=== PATIENT | female | born 1950 | race Caucasian/White ===

== ENCOUNTER 2019-02-12 17:10 | Inpatient (IN) | payer MEDICARE, OTHER ==
[~2019-02-12] VITALS: Ht 152.4 cm; Wt 72.6 kg
[~2019-02-12 17:10] MED LIST: BENICAR20 MG PO; BIOTIN PO; CITRACAL CALCIUM; ESTRADIOL1 MG PO; GLUCOSAMINE1000 MG PO; HYDROCODON-ACE1 EA11 PO; HYDROXYCHLOROQ200 MG PO; LEFLUNOMIDE20 MG PO; LISINOPRIL10 MG PO; MELATONIN1 MG PO; MULTIVITAMIN PO; NITROSTAT0.4 MG PO; PANTOPRAZOLE SO40 MG PO; SERTRALINE HCL100 MG PO; TYLENOL WITH C1 EACH PO; ULTRAM 50MG50 MG PO
--- OUTSIDE RECORDS SUMMARY | 2019-02-12 17:14 | XMS REPORT | Continuity of Care Document ---
Author Author [facility] Interface Address Unknown Phone Unavailable Problems Problem Status Onset Date Classification Date Reported Comments Source UNK Active 07/02/2018 [place] M25.512 - PAIN IN LEFT SHOULDER Active 02/13/2018 [facility] Cough 11/08/2017 02/10/2018 [facility] RIGHT TKR Active 09/29/2017 [facility] RT TKR Active 09/29/2017 [facility] M48.06 - "SPINAL STENOSIS, LUMBAR REGION Active 03/07/2016 [facility] [place] R32 - UNSPECIFIED URINARY INCONTINEN M48 Active 02/27/2016 [facility] [place] Diaphragmatic hernia without obstruction or gangrene 02/10/2018 [facility] Cervical disc disorder, unspecified, unspecified cervical region 02/04/2018 [facility] [place] Anemia Active Problem [facility]04[facility] [place] Rheumatoid arthritis Active Problem 12/04/2018 [facility] [place] Asthma Resolved Problem 12/04/2018 [facility] [place] GERD (<span ID="[id number]">Confirmed</span>) Active Problem 12/04/2018 [facility] [place] History of colon polyps Resolved Problem 12/04/2018 [facility] [place] HTN (<span ID="[id number]">Confirmed</span>) Active Problem 12/04/2018 [facility] [place] Osteoarthritis Active Problem [facility]04[facility] [place] Osteoporosis Active Problem 12/04/2018 [facility] [place] BARRON KNEE OA AND PAIN AND GAIT INSTABILIT Active [facility] UNILATERAL PRIMARY OSTEOARTHRITIS, LEFT Active [facility] Medications Medication Details Route Status Patient Instructions Ordering Provider Order Date Source Sodium Chloride 0.9% IV 1,000 mL 1,000 mL, Rate: 25 ml/hr, Infuse over: 40 hr, Route: IV, Dosing Weight 73.636 kg, Total Volume: 1,000, Start date: 04/07/18 8:21:00 CDT, Duration: 1 day, Stop date: 04/08/18 8:20:00 CDT, 1.81, m2 Inactive 04/07/2018 [facility] leflunomide 20 mg oral tablet 20 mg=1 tab, PO, Daily, 0 Refill(s) Active 04/06/2018 [facility] montelukast 10 mg oral tablet 10 mg=1 tab, PO, Daily, 0 Refill(s) Active 04/06/2018 [facility] estradiol-norethindrone 0.5 mg-0.1 mg oral tablet 1 tab, PO, Daily, 0 Refill(s) Active 04/06/2018 [facility] Alendronic acid 70 MG Oral Tablet 70 mg=1 tab, PO, qWeek, 0 Refill(s) Active 04/06/2018 [facility] olmesartan 40 mg oral tablet 40 mg=1 tab, PO, Daily, 0 Refill(s) Active 04/06/2018 [facility] Elemental Iron 325, PO, Daily, 0 Refill(s) Active 04/06/2018 [facility] sertraline 100 mg oral tablet 100 mg=1 tab, PO, Daily, 0 Refill(s) Active 04/06/2018 [facility] tizanidine 2 mg oral tablet 2 mg=1 tab, PO, PRN, 0 Refill(s) Active 04/06/2018 [facility] pantoprazole 40 mg oral enteric coated tablet 40 mg=1 tab, PO, Daily, 0 Refill(s) Active 04/06/2018 [facility] Melatonin 1 mg oral tablet 1 mg=1 tab, PO, Bedtime, PRN for insomnia, 0 Refill(s) Active 04/06/2018 [facility] Fish Oil 1000 mg oral capsule 1,000 mg=1 cap, PO, BID, 0 Refill(s) Active 04/06/2018 [facility] Citracal + D 250 mg-500 intl units oral tablet, chewable 2 tab, CHEW, 0 Refill(s) Active 04/06/2018 [facility] 0.3 ML Epinephrine 1 MG/ML Prefilled Syringe [Epipen] 0.3 mg, IM, ONCE, 0 Refill(s) Active 04/06/2018 [facility] Loratadine 10 MG Oral Tablet [Claritin] 10 mg=1 tab, PO, Daily, 0 Refill(s) Active 04/06/2018 [facility] Centrum 1 tab, PO, Daily, 0 Refill(s) Active 04/06/2018 [facility] Aspirin 81 MG Enteric Coated Tablet 81 mg=1 tab, PO, Daily Active 04/06/2018 [facility] Allergies, Adverse Reactions, Alerts Substance Category Reaction Severity Reaction type Status Date Reported Comments Source sulfa drugs Assertion Drug allergy Active [facility] methotrexate Assertion Drug allergy Active [facility] Augmentin Assertion Drug allergy Active [facility] Food Gluten Assertion Drug allergy Active [facility] Food Nuts Assertion Drug allergy Active [facility] JACQUELYN Inhibitors Assertion Drug allergy Active [facility] hydroCHLOROthiazide Assertion Drug allergy Active [facility] Immunizations Immunization Date Given Site Status Last Updated Comments Source Results Order Name Results Value Reference Range Date Interpretation Comments Source Hip wo contrast CT Hip wo contrast CT EXAM: CT RIGHT HIP WITHOUT CONTRAST DATE: 11/04/2018 13:23 [employer] INDICATION: - M54.41 Lumbago with sciatica, right side COMPARISON: None. TECHNIQUE: Volumetric CT acquisition of the hip without contrast. Axial, sagittal and coronal reconstructions. IV contrast: None. DLP: 196 mGy-cm. FINDINGS: There is diffuse osteopenia. Pelvis/Acetabulum: There is no acute fracture. Minimal acetabular osteophytes are present. Femur: The proximal femoral femur is intact. No acute fracture identified. Greater trochanteric enthesophytes are noted. A small ossific fragment along the anterior aspect of the right greater trochanter may represent remote injury versus a broken enthesophyte. Small femoral neck and medial femoral head osteophytes noted. Mild femoral acetabular joint space narrowing. Soft tissues: No soft tissue swelling. Atherosclerotic vascular calcifications are present. No radiopaque foreign body or subcutaneous emphysema. No pneumarthrosis. IMPRESSION: 1. No acute fracture or malalignment. 2. Mild right hip joint degenerative changes. 11/04/2018 - - Read by: Ayden Massey MD Dictated Date/time: 11/04/18 15:10 Electronically Signed by: Ayden Massey MD 02/06/19 15:15 FINAL REPORT [facility] lumbar wo contrast CT Spine lumbar wo contrast CT EXAM: CT LUMBAR SPINE WITHOUT CONTRAST DATE: 11/04/2018 13:23 [employer] INDICATION: Low back pain, right-sided sciatica COMPARISON: MRI lumbar spine from 02/29/2016 TECHNIQUE: Noncontrast axial imaging was obtained through lumbar spine. Coronal and sagittal reformatted images were generated. DLP: 317.05mGy-cm FINDINGS: Slight anterolisthesis of L5 on S1, otherwise the lumbar vertebrae maintain normal height and alignment. Laminectomy changes at the L4-L5 level. Diffuse severe reduction of disc height, with degenerative endplate changes and endplate osteophyte formation and vacuum phenomenon at all levels. Ventral epidural air at the L4 level, likely from the discogenic degenerative change. Accentuated lordotic curve. T11-T12: Mild right greater than left facet hypertrophy and mild posterior endplate osteophyte formation with no spinal canal or foraminal stenosis. T12-L1: Mild bilateral facet arthropathy. No spinal canal or foraminal stenosis. L1-L2: Bilateral facet hypertrophy and posterior disc osteophyte complex with at least mild spinal canal stenosis. Endplate osteophytes encroach into the inferior foraminal recesses bilaterally, with bilateral foraminal stenosis. L2-L3: Bilateral facet hypertrophy and posterior disc osteophyte complex with a focal bridging left posterior central disc osteophyte complex. Severe spinal canal stenosis. Bilateral facet hypertrophy and foraminal stenosis. L3-L4: Posterior disc osteophyte complex and bilateral facet hypertrophy, with severe spinal canal stenosis and obliteration of the subarticular zones and bilateral foraminal stenosis, severe on the left which places the exiting nerve root sleeve at risk for impingement. L4-L5: Decompressed spinal canal secondary to laminectomy changes. Right greater than left facet hypertrophy with bilateral foraminal stenosis, more severe on the right, placing the exiting nerve root sleeve at risk for impingement. L5-S1: Grade 1 anterolisthesis. Posterior endplate osteophyte formation and advanced bilateral facet hypertrophy with associated spinal canal stenosis. Bilateral foraminal stenosis, severe on the left, placing the exiting nerve root sleeve at risk for impingement. The paraspinal soft tissues are unremarkable. There is a partially imaged linear catheter or lead in the left postsurgical soft tissues. IMPRESSION: Diffuse discogenic degenerative changes in the lower thoracic and lumbar spine, with some associated ventral epidural air at the L4 level. L4-L5 laminectomy changes. Severe spinal canal stenosis at L2-L3 and worst at L3-L4. Diffuse facet facet hypertrophy with multilevel foraminal stenosis. 11/04/2018 - - Read by: Davide Bai MD Dictated Date/time: 11/04/18 15:06 Electronically Signed by: Davide Bai MD 11/04/18 15:33 FINAL REPORT [facility] Knee 1-2 Views unilateral DX Knee 1-2 Views unilateral DX Patient Name: LISA GARZA : 1950; Age: 68 years Female MR: [id number] Study: Knee 1-2 Views unilateral DX 08/24/2018 12:55 PM [employer] CLINICAL INDICATION: Arthritis - Assess Implant Position COMPARISON: None FINDINGS: Views and laterality: Right knee 2 views The femoral and tibial prosthetic components of the right knee arthroplasty appear in adequate alignment. No evidence of hardware loosening or malfunction. No displaced fracture. Postoperative changes of the surrounding soft tissues including swelling and gas foci. IMPRESSION: Status post right knee arthroplasty. SL: [id number] 08/24/2018 - - Read by: Marjan Diehl MD Dictated Date/time: 08/24/18 14:02 Electronically Signed by: Marjan Diehl MD 08/24/18 14:03 FINAL REPORT [facility] Spine cervical 2 or 3 view DX Spine cervical 2 or 3 view DX Spine cervical 3 view DX Age: 68 years /o Female Clinical Indication: Arthritis - C1-2 instability; Comparison: None FINDINGS: Neutral, flexion and extension lateral views performed. The patient has had previous cervical fusions. An anterior plate bridges a fused C4-5 disc level. Interbody fusion grafts are present at C5-6 and C6-7. There is mild anterior migration of the C6-7 fusion cage so that the inferior margin projects approximately 2 mm anterior to the upper endplate of C7. The atlantodental articulation appears mildly degenerated, but otherwise unremarkable. Lateral view in flexion reveals a 3.5 mm anterolisthesis of C3 with respect to C4. There is a 1.8 mm anterolisthesis of C2 with respect to C3. Fusion grafts appear stable. Lateral view in extension reveals reduction of the L2-3 and L3-4 anterolisthesis changes to anatomic alignment. This view demonstrates the cervicothoracic junction to advantage, revealing an 8 mm anterolisthesis of C7 with respect to T1 with advanced degenerative disc disease at the C7-T1 level. This finding has progressed significantly from previous MR study of 02/29/2016. IMPRESSION: 1. An 8 mm (severe grade II) anterolisthesis of C7 with respect to T1 on the lateral extension view. Associated with advanced degenerative disc disease at C7-T1. (This finding is only well seen on the extension view and may be worse with flexion.) 2. Mild anterolisthesis of C2 with respect to C3 and C3 with respect to C4 on flexion. Which is reduced in neutral and extension projections. SL: [id number] 08/24/2018 - - Read by: Ulices Jeffers MD Dictated Date/time: 08/24/18 09:41 Electronically Signed by: Ulices Jeffers MD 08/24/18 09:52 FINAL REPORT [facility] Chest 2 views DX Chest 2 views DX Patient Name: LISA GARZA : 1950; Age: 68 years y/o Female MR: [id number] Study: Chest 2 views DX 08/06/2018 8:33 AM [employer] Ordering Physician: Kong Ackerman MD Comparison: Chest radiograph 11/04/2017 Clinical Indication: Coughing Findings: No focal consolidation, pleural effusion or pneumothorax. The heart size is within normal limits. Midline trachea. Large hiatal hernia. Degenerative changes of the thoracic spine. Cervical spine fusion hardware. Remote left-sided rib fractures. Right upper quadrant surgical clips. IMPRESSION: No pneumonia. Large hiatal hernia. SL: [id number] 08/06/2018 - - Read by: Uriel Gleason Dictated Date/time: 08/06/18 09:20 Electronically Signed by: Uriel Gleason 08/06/18 09:22 FINAL REPORT [facility] Shoulder w contrast CT Shoulder w contrast CT CT LEFT SHOULDER ARTHROGRAM WITH SAGITTAL AND CORONAL REFORMATTED IMAGES HISTORY: M75.42 - IMPINGEMENT SYNDROME, PAIN; 67-year-old female reports left shoulder pain and limited range of motion, CT DLP 389.05 COMPARISON: Left shoulder radiography dated 02/13/2018 FINDINGS: Complete tears of the supraspinatus and infraspinatus tendons with several centimeters retraction to the level of the glenoid. Low-grade interstitial tear within the subscapularis insertion. No subscapularis tendon retraction. Superior subluxation of the humeral head compatible with massive rotator cuff tear. Free extravasation of intra-articular contrast into the subacromial space related to full-thickness rotator cuff tear. Long head of the biceps tendon not visualized compatible with complete tear and retraction. No labral tear is evident. Mild diffuse thinning of the glenohumeral cartilage without full-thickness cartilage defect. Mild hypertrophic acromioclavicular arthropathy with mild inferior spurring. No fracture or aggressive osseous lesion. No soft tissue mass or fluid collection. Visualized portion of the left lung is clear. IMPRESSION: 1. Complete tears of the supraspinatus and infraspinatus tendons with several centimeters retraction compatible with massive rotator cuff tear. 2. Low-grade interstitial tear within the subscapularis insertion. No subscapularis retraction. 3. Nonvisualization of the long head of the biceps tendon compatible with tear and retraction. 4. Mild diffuse glenohumeral cartilage thinning and mild acromioclavicular hypertrophic arthropathy. SL: [id number] 04/02/2018 - - Read by: Baldemar Landers MD Dictated Date/time: 04/02/18 16:21 Electronically Signed by: Baldemar Landers MD 04/02/18 16:30 FINAL REPORT [facility] Shoulder arthrogram DX Shoulder arthrogram DX Patient Name: LISA GARZA : 1950; Age: 67 years y/o Female MR: [id number] Study: Shoulder arthrogram DX 04/02/2018 1:22 PM CDT Ordering Physician: Kong Ackerman MD Clinical Indication: M75.42 Impingement syndrome of left shoulder - left shoulder pain Comparison: None EXAM: FLUOROSCOPY-GUIDED LEFT SHOULDER INJECTION FOR MR ARTHROGRAM TECHNIQUE: Consent: The risks and benefits of fluoroscopically guided left shoulder injection for CT arthrography including alternative forms of treatment and nontreatment were discussed with the patient. The patient indicated understanding, was allowed to ask questions, and signed a written informed consent. Appropriate time out procedures were performed. Fluoroscopy time: 2.2 minutes. TECHNIQUE: The patient was placed supine on the fluoroscopy table with a bolster under the right shoulder. Suitable access to the left shoulder joint was marked under fluoroscopy and the area prepared and draped in the usual sterile fashion. Local anesthesia was obtained with injection of approximately 8 mL lidocaine 1%. Subsequently, a 22-gauge needle was advanced into the left shoulder joint under fluoroscopic guidance. Approximately 8 mL Omnipaque 300 were injected without difficulty. The needle was removed. The patient experienced fairly severe pain with the initial local anesthesia and needle p lacement, but reported 0-1 pain at the end of the examination. IMPRESSION: Fluoroscopically guided left shoulder injection for CT arthrography as above discussed. SL: [id number] 04/02/2018 - - Read by: Ferny Hammond MD Dictated Date/time: 04/02/18 15:36 Electronically Signed by: Ferny Hammond MD 04/02/18 15:40 FINAL REPORT [facility] Shoulder series DX Shoulder series DX EXAM: XR LEFT SHOULDER 3 VIEWS DATE: 02/13/2018 11:37 AM CDT INDICATION: - M25.512 Pain in left shoulder COMPARISON: None available. TECHNIQUE: 3 views of the shoulder FINDINGS: No acute fracture or malalignment is identified. Mild degenerative changes of acromioclavicular joint. Mild diffuse osteopenia is present. Curvilinear calcification along the posterior lateral aspect of the humeral head likely represents capsular calcification. IMPRESSION: 1. No acute abnormality. 2. Mild acromioclavicular joint degenerative changes. 02/13/2018 - - Read by: Ayden Massey MD Dictated Date/time: 02/13/18 13:59 Electronically Signed by: Ayden Massey MD 02/13/18 14:01 FINAL REPORT [facility] Spine cervical wo contrast CT Spine cervical wo contrast CT EXAMINATION: CT cervical spine without contrast: 01/26/2018 INDICATION: Cervical disc disorder. Rheumatoid arthritis. FINDINGS: Noncontrast CT images of the cervical spine are performed with multiplanar reformatting. Comparison is made to an MRI study dated 03-14 intervening plain films dated 07/15/[address] study demonstrates to much better advantage advanced degenerative changes present at the C7-T1 transitional level. These were probably present on the plain film, but obscured by overlying shoulder. The changes are much more advanced than on the comparison MRI from 2016, when only early anterolisthesis was evident. The current exam shows marked sclerosis and erosion of the C7-T1 disc space with complete loss the disc and development of vacuum phenomenon. There is advanced bilateral facet arthropathy with sclerosis, hypertrophy, and subluxation. There is grade 2 anterolisthesis with anterior translation of C7 over T1 and there is calcification hypertrophy of interspinous ligaments and ligamentum flavum. This is accompanied by erosion of the anterior inferior margin of the C6 spinous process. Changes combine to produce severe stenosis at the cervicothoracic junction. There are degenerative changes the craniocervical junction without stenosis. There are disc and facet degenerative changes at C2-C3 without stenosis. There are disc degenerative images and facet degenerative changes at C3-C4 with left-sided foraminal narrowing secondary to facet arthropathy. At C4-C5 and C5-C6, anterior discectomy and fusion has been performed with anterior stabilization. The canal is widely patent. The foramina are only minimally stenotic. Anterior cervical fusion with intervertebral cage occupying the anterior disc space. The alignment is normal at the fusion level. There is no significant canal or foraminal narrowing. IMPRESSION: Advanced degenerative changes at the C7-T1 transitional level with complete loss the disc space, advanced facet arthropathy, and grade 1-2 anterolisthesis resulting in canal and foraminal stenosis. 01/26/2018 - - Read by: Robert Crowder MD Dictated Date/time: 01/26/18 16:58 Electronically Signed by: Robert Crowder MD 01/26/18 17:04 FINAL REPORT [facility] Chest 2 views DX Chest 2 views DX EXAM: XR CHEST 2 VIEWS DATE: 11/04/2017 9:37 AM [employer] INDICATION: - R05 Cough COMPARISON: None TECHNIQUE: PA and lateral chest radiographs FINDINGS: Lungs are symmetrically well expanded. No pulmonary or pleural-based abnormality is identified. Retrocardiac airspace opacity with air-fluid level likely representing a large hiatal hernia. The cardiomediastinal silhouette is normal. No acute osseous abnormality is identified. Kyphotic configuration of the spine. Old bilateral rib fractures are identified. Fixation hardware in the lower cervical spine identified. IMPRESSION: No acute cardiopulmonary abnormality. Large hiatal hernia. 11/04/2017 - - Read by: Saleem Woodson MD Dictated Date/time: 11/04/17 10:06 Electronically Signed by: Saleem Woodson MD 11/04/17 10:09 FINAL REPORT [facility] Spine cervical 2 or 3 view DX Spine cervical 2 or 3 view DX EXAM: Spine cervical 2 or 3 view DX HISTORY: - R20.2 Paresthesia of skin COMPARISON: None AP, lateral and odontoid views of the cervical spine. FINDINGS: Anterior fusion plate at C4-C5 with vertebral body fusion noted. There is cage at C5-C6 and C7-T1. The anterior aspect of the C7-T1 cage is aligned with the anterior vertebral body cortex. The bones are osteopenic, limiting evaluation in the cervicothoracic junction is not well seen due to overlapping soft tissues on the lateral view. No listhesis is evident. Moderate uncovertebral degenerative changes are noted. Impression: Postoperative and degenerative changes as above. 07/15/2017 - - Read by: Caroline Lynn MD Dictated Date/time: 07/16/17 07:20 Electronically Signed by: Caroline Lynn MD 07/16/17 07:23 FINAL REPORT [facility] Spine cervical wo contrast MRI Spine cervical wo contrast MRI Study: Spine cervical wo contrast MRI Clinical Indication: M48.02 Spinal stenosis, cervical region Comparison: None TECHNIQUE: Multiplanar, multisequence magnetic resonance imaging of the cervical spine was performed without the administration of intravenous gadolinium contrast. FINDINGS: There is normal alignment of the cervical spine. No focal marrow signal abnormality is present. The prevertebral soft tissues, atlanto-dental interspace, and craniocervical junction are within normal limits. The visualized brainstem region is unremarkable. The cervical spinal cord is normal in size and signal. Postoperative changes of multilevel ACDF from C4 through C7 are seen. Osseous fusion across the C4-C5 disc space is seen. Disc desiccation with severe disc height loss at C3-C4 and C6-C7 is noted. DISC SPACES: C2-C3: Small circumferential disc osteophyte complex is seen. Mild to moderate facet arthrosis is noted. There is no spinal canal stenosis or neural foraminal narrowing. C3-C4: Large circumferential disc osteophyte complex is seen. Severe left and mild right facet arthrosis is noted. There is mild spinal canal stenosis with thecal sac measuring 9.5 mm AP dimension. Severe left neural foraminal narrowing is noted. C4-C5: Osseous fusion across the disc space is seen. Osseous fusion across the facet joints is also noted. There is no spinal canal stenosis or neural foraminal narrowing. C5-C6: Moderate size circumferential osteophyte is seen. There is resulting moderate-severe left neural foraminal narrowing without spinal canal stenosis. Facets are intact. C6-C7: Large, circumferential disc osteophyte complex is seen. Mild facet arthrosis is noted. There is severe left neural foraminal narrowing without spinal canal stenosis. C7-T1: Grade 1 anterolisthesis of C7 over T1 by 3 mm is seen. Severe facet arthrosis is noted. Small annular disc bulge is seen. No spinal canal stenosis or neural foraminal narrowing is present. IMPRESSION: 1. Postoperative changes of multilevel ACDF from C4 through C7. 2. Multilevel degenerative changes of the remaining cervical spine with mild spinal canal stenosis and severe left neural foraminal narrowing at C3-C4. 3. C5-C6 moderate to severe left neural foraminal narrowing. 4. C6-C7 severe left neural foraminal narrowing. SL: ROSIBEL 02/29/2016 - - Read by: Carlos Willett MD Dictated Date/time: 03/01/16 00:33 Electronically Signed by: Carlos Willett MD 03/01/16 00:38 FINAL REPORT [facility] Spine lumbar wo contrast MRI Spine lumbar wo contrast MRI Study: Spine lumbar wo contrast MRI Clinical Indication: R32 Unspecified urinary incontinence; W19.XXXA Unspecified fall, initial encounter;M62.81 Muscle weakness (generalized); M06.09 Rheumatoid arthritis without rheumatoid factor, multiple sites Comparison: None TECHNIQUE: Multiplanar, multisequence magnetic resonance imaging of the lumbar spine was performed without the administration of intravenous gadolinium contrast. FINDINGS: 5 nonrib-bearing lumbar vertebra are present. No acute compression fracture is seen. There is grade 1 anterolisthesis of L5 over S1 by 6 mm. No vertebral body marrow edema is seen. Disc desiccation with severe multilevel disc height loss throughout the lumbar spine is seen. Conus terminates at L1. Paravertebral soft tissues are unremarkable. Findings by level: T12-L1: Negative for significant disc bulge or protrusion. Moderate facet arthrosis and ligamentum flavum hypertrophy is seen. There is no spinal canal stenosis or neural foraminal narrowing. L1-L2: Large circumferential disc osteophyte complex is seen. Moderate-severe facet arthrosis and ligamentum flavum hypertrophy is present. There is mild spinal canal stenosis with mild bilateral neural foraminal narrowing. L2-L3: Moderate to large circumferential disc osteophyte complex is seen with superimposed central disc protrusion measuring 8 mm transversely and 6 mm AP dimension. Moderate-severe facet arthrosis and ligamentum flavum hypertrophy is present. There is moderate-severe spinal canal stenosis with mild bilateral neural foraminal narrowing. L3-L4: Large circumferential disc osteophyte complex is seen, eccentric to the left. Severe facet arthrosis and ligamentum flavum hypertrophy is seen. There is severe spinal canal stenosis with severe left and mild right neural foraminal narrowing. L4-L5: Large circumferential disc osteophyte complex is seen. Severe facet arthrosis is noted. There is severe spinal canal stenosis with moderate-severe bilateral neural foraminal narrowing. L5-S1: Severe facet arthrosis is seen. Large circumferential disc osteophyte complex is seen. There is moderate-severe spinal canal stenosis and moderate- severe bilateral neural foraminal narrowing. The cauda equina is unremarkable. IMPRESSION: 1. Advanced degenerative changes of the lumbar spine with severe spinal canal stenosis and severe left neural foraminal narrowing at L3-L4. 2. L4-L5 severe spinal canal stenosis with moderate-severe bilateral neural foraminal narrowing. 3. L5-S1 moderate-severe spinal canal stenosis and moderate-severe bilateral neural foraminal narrowing. 4. L2-L3 moderate-severe spinal canal stenosis with mild bilateral neural foraminal narrowing. 5. L1-L2 mild spinal canal stenosis with mild bilateral neural foraminal narrowing. SL: ROSIBEL 02/29/2016 - - Read by: Carlos Willett MD Dictated Date/time: 02/29/16 23:38 Electronically Signed by: Carlos Willett MD 02/29/16 23:44 FINAL REPORT [facility] [place] Hand 3 views Bilateral DX Hand 3 views Bilateral DX EXAM: XR BILATERAL HAND 3 VIEWS DATE: 12/20/2015 9:24 AM CDT INDICATION: M06.09 Rheumatoid arthritis without rheumatoid factor, multiple sites COMPARISON: Bilateral hand series 03/09/2012 white TECHNIQUE: PA, lateral and oblique radiographs of the bilateral hands. DISCUSSION: The from progression of the nonuniform joint space narrowing involving the bilateral DIP and 2nd and 3rd MCP joints. Central erosions and osteophytes of the DIP joints and large osteophytes with cystic change of the 2nd and 3rd metacarpal heads and noted. Progression of joint space narrowing with articular surface remodeling and osteophytes of the bilateral 1st CMC joint and of the left lunate. Bilateral MCP soft tissue swelling. IMPRESSION: Progression of severe arthritis involving the bilateral DIP, 2nd and 3rd MCP, and 1st CMC joints. The DIP and 1st CMC arthritic changes are more consistent with osteoarthrosis while the 2nd and 3rd MCP involvement is more consistent with rheumatoid arthritis. 12/20/2015 - - Read by: Villa Sullivan MD Dictated Date/time: 12/20/15 11:32 Electronically Signed by: Villa Sullivan MD 12/20/15 11:41 FINAL REPORT [facility] Knee 3 Views Bilateral DX Knee 3 Views Bilateral DX EXAM: XR BILATERAL KNEE 3 VIEWS DATE: 12/20/2015 9:25 AM CDT INDICATION: M06.09 Rheumatoid arthritis without rheumatoid factor, multiple sites COMPARISON: None TECHNIQUE: Standing AP, sunrise and lateral radiographs of both knees FINDINGS: Generally diminished bone mineral density. Mild bilateral medial compartment narrowing. Additional severe lateral compartment narrowing with subarticular sclerosis of the right knee. Mild bilateral patellofemoral compartment narrowing. Bilateral small knee osteophytes. No excessive knee joint fluid. IMPRESSION: 1. Mild left knee osteoarthrosis. 2. Severe right knee osteoarthrosis, greatest in lateral compartment. 12/20/2015 - - Read by: Villa Sullivan MD Dictated Date/time: 12/20/15 11:41 Electronically Signed by: Villa Sullivan MD 12/20/15 11:43 FINAL REPORT [facility] Sacroiliac joints series DX Sacroiliac joints series DX EXAM: XR SACROILIAC JOINT 3 VIEWS DATE: 12/20/2015 9:25 AM CDT INDICATION: M06.09 Rheumatoid arthritis without rheumatoid factor, multiple sites COMPARISON: None TECHNIQUE: AP, RPO and LPO radiographs of the sacroiliac joints DISCUSSION: The sacroiliac joint widths are well preserved. No sclerosis or osseous erosion is seen on either side. Disc space narrowing with endplate sclerosis is present at L4-L5 and L5-S1. No soft tissue abnormality is identified. IMPRESSION: No radiographic findings of sacroiliitis. 12/20/2015 - - Read by: Villa Sullivan MD Dictated Date/time: 12/20/15 12:09 Electronically Signed by: Villa Sullivan MD 12/20/15 12:10 FINAL REPORT [facility] Vital Signs Vital Sign Value Date Comments Source Systolic (mm Hg) 128 04/07/2018 [facility] Diastolic (mm Hg) 78 04/07/2018 [facility] Respitory Rate 15 04/07/2018 [facility] Respitory Rate 16 04/07/2018 [facility] Systolic (mm Hg) 110 04/07/2018 [facility] Diastolic (mm Hg) 63 04/07/2018 [facility] Respitory Rate 14 04/07/2018 [facility] Systolic (mm Hg) 99 04/07/2018 [facility] Diastolic (mm Hg) 67 04/07/2018 [facility] Height 154.94 cm 04/06/2018 [facility] Weight 73.636 04/06/2018 [facility] BMI Calculated 30.67 04/06/2018 [facility] Encounters Location Location Details Encounter Type Encounter Number Reason For Visit Attending Provider ADM Date DC Date Status Source [facility] [place] [facility] [id number] Ashanti Toledo 12/20/2015 12/21/2015 [facility] [place] [facility] [id number] Abby Lafleur 02/29/2016 03/01/2016 [facility] Outpatient [facility] [place] [facility] [id number] Mercedes Cisneros 07/15/2017 07/16/2017 [facility] [place] [facility] Out[facility] [place] [facility] [id number] Cas Solorzano 11/04/2017 11/05/2017 [facility] Outpatient [facility] - [place] [facility] [id number] Conner Davis 01/26/2018 01/27/2018 [facility] Out[facility] [place] [facility] [id number] Ban Kerr 02/13/2018 02/14/2018 [facility] Outpatient Imaging [place] [facility] [id number] Kong Ackerman 04/02/2018 04/03/2018 [facility] Bedded Outpatient [id number] Hosea Sofia 04/07/2018 04/07/2018 [facility] OP Therapy Patients [id number] Kong Ackerman 09/30/2018 10/30/2018 [facility] OP Therapy Patients [id number] Kong Ackerman 11/03/2018 12/03/2018 [facility] Outpatient Imaging - [place] [facility] [id number] Cas Solorzano 11/04/2018 11/05/2018 [facility] [place] Procedures Procedure Code Date Perfomer Comments Source Appendectomy [id number] [facility] Carpal tunnel decompression [id number] [facility] Cataract extraction, insertion of intraocular lens and trabeculectomy [id number] [facility] Cholecystectomy 07363113 [facility] Colonoscopy 08666174 [facility] Esophagogastroduodenoscopy 23828702 [facility] Hysterectomy 864964730 [facility] Miscellaneous operations 560309130 [facility] Tooth extraction 83349628 [facility] Tubal ligation 60992932 [facility] Appendectomy [id number] [facility] Carpal tunnel decompression 70991202 [facility] Cholecystectomy [id number] [facility] Colon[facility] [id number] [facility] Esophagogastroduodenoscopy 01908627 [facility] Hysterectomy 783260107 [facility] Miscellaneous operations 557989201 [facility] Tooth extraction 34456526 [facility] Tubal ligation 49355117 [facility] Cataract extraction, insertion of intraocular lens and trabeculectomy [id number] [facility] [place] Cholecystectomy [id number] [facility] [place] Colonoscopy [id number] [facility] [place] Esophagogastroduodenoscopy [id number] [facility] [place] Hysterectomy [id number] [facility] [place] Miscellaneous operations [id number] [facility] [place] Tooth extraction [id number] [facility] [place] Tubal ligation [id number] [facility] [place]
--- OUTSIDE RECORDS SUMMARY | 2019-02-12 17:14 | XMS REPORT | Summary of Care ---
Author Author [facility] Outpatient Imaging [facility] Outpatient [facility] Address Unknown Phone Unavailable Encounter HQ Encntr_hussain(FIN) [id number] Date(s): 01/26/18 - 01/26/18 [facility] Outpatient Imaging [facility] [address] [facility], [address] [place], [place] [address] [phone] Discharge Disposition: Home or Self Care Attending Physician: Conner Davis MD Vital Signs No data available for this section Problem List No data available for this section Allergies, Adverse Reactions, Alerts No data available for this section Medications No data available for this section Results No data available for this section Immunizations No data available for this section Procedures No data available for this section Social History No data available for this section Assessment and Plan No data available for this section
--- OUTSIDE RECORDS SUMMARY | 2019-02-12 17:14 | XMS REPORT | Summary of Care ---
Author Author [facility] [place] Organization [facility] [place] Address Unknown Phone Unavailable Encounter Victor Manuelntr_hussain(FIN) [id number] Date(s): 07/15/17 - 07/15/17 [facility] Outpatient [facility] - [place] [address] [place] [phone] Discharge Disposition: Home or Self Care Attending Physician: Mercedes Cisneros GOVERNMENT RELATIONS DIRECTOR Vital Signs No data available for this [...]
--- OUTSIDE RECORDS SUMMARY | 2019-02-12 17:15 | XMS REPORT | Summary of Care ---
Author Author [facility] Outpatient Imaging [facility] Outpatient Imaging [place] Address Unknown Phone Unavailable Encounter HQ Encntr_alias(FIN) [id number] Date(s): 02/29/16 - 02/29/16 [facility] Outpatient Imaging [address] [address]- [phone] Discharge Disposition: Home Attending Physician: Abby Lafleur MD Vital Signs No data available for [...]
--- OUTSIDE RECORDS SUMMARY | 2019-02-12 17:15 | XMS REPORT | Summary of Care ---
Author Author [facility] Organization [facility] Address Unknown Phone Unavailable Encounter HQ aPvel_hussain(FIN) [id number] Date(s): 09/30/18 - 10/29/18 [facility] Discharge Disposition: Home or Self Care Attending Physician: Kong Ackerman MD Vital Signs No data available for this section Problem List Condition Effective Dates Status Health Status Informant Anemia(Confirmed) Active Rheumatoid Active arthritis(Confirmed) Asthma(Confirmed) Resolved GERD Active (gastroesophageal reflux disease)(Confirmed) History of colon Resolved polyps(Confirmed) HTN Active (hypertension)(Confi rmed) Osteoarthritis(Confi Active rmed) Osteoporosis(Confirm Active ed) Allergies, Adverse Reactions, Alerts Substance Reaction Severity Status sulfa drugs Active methotrexate Active Augmentin Active Food Gluten Active Food Nuts Active JACQUELYN Inhibitors Active hydroCHLOROthiazide Active Medications No data available for this section Results No data available for this section Immunizations No data available for this section Procedures Procedure Date Related Diagnosis Body Site Status Appendectomy Completed Carpal tunnel decompression Completed Cataract extraction, insertion of intraocular Completed lens and trabeculectomy Cholecystectomy Completed Colonoscopy Completed Esophagogastroduodenoscopy Completed Hysterectomy Completed Miscellaneous operations Completed Miscellaneous operations Completed Miscellaneous operations Completed Tooth extraction Completed Tubal ligation Completed Social History Social History Type Response Substance Abuse Use: None. Alcohol Current Smoking Status Never smoker; Exposure to Tobacco Smoke None; Cigarette Smoking Last 365 Days No; Reg Smoking Cessation Counseling No entered on: 08/24/18 Assessment and Plan No data available for this section
--- OUTSIDE RECORDS SUMMARY | 2019-02-12 17:15 | XMS REPORT | Summary of Care ---
Author Author [facility] Outpatient Imaging [facility] Outpatient [facility] Address Unknown Phone Unavailable Encounter HQ Encntr_alitana(FIN) [id number] Date(s): 02/13/18 - 02/13/18 [facility] Outpatient Imaging [facility] [address] [facility], [address] [place] [phone] Discharge Disposition: Home or Self Care Attending Physician: Ban Kerr MD Vital Signs No data available for [...]
--- OUTSIDE RECORDS SUMMARY | 2019-02-12 17:15 | XMS REPORT | Summary of Care ---
Author Author [facility] Outpatient Imaging [facility] Outpatient Imaging [facility] Address Unknown Phone Unavailable Encounter HQ Encntr_alias(FIN) [id number] Date(s): 11/04/17 - 11/04/17 [facility] [address] [facility], [address] [place] [phone] Encounter Diagnosis Cough (Final) - 11/07/17 Diaphragmatic hernia without obstruction or gangrene (Final) - Discharge Disposition: Home or Self Care Attending Physician: Cas Solorzano DO Vital Signs No data available for this [...]
--- OUTSIDE RECORDS SUMMARY | 2019-02-12 17:15 | XMS REPORT | Summary of Care ---
Author Author [facility] Organization [facility] Address Unknown Phone Unavailable Encounter ANDREA Fung(ANDREW) [id number] Date(s): 04/07/18 - 04/07/18 [facility] [address] [place] [address]- [phone] Discharge Disposition: Home or Self Care Attending Physician: Hosea Black MD Referring Physician: Hosea Black MD Vital Signs 1 2 3 Most recent to oldest [Reference Range]: 154.94 cm (04/06/18 1:15 PM) Height 128/78 mmHg (04/07/18 9:45 AM) 110/63 mmHg (04/07/18 9:30 AM) 99/67 mmHg (04/07/18 9:17 AM) Blood Pressure [90-140/60-90 mmHg] 15 BRMIN (04/07/18 9:45 AM) 16 BRMIN (04/07/18 9:30 AM) 14 BRMIN (04/07/18 9:17 AM) Respiratory Rate [14-20 BRMIN] 73.636 kg (04/06/18 1:15 PM) Weight 30.67 m2 (04/06/18 1:15 PM) Body Mass Index Problem List Condition Effective Dates Status Health Status Informant Anemia(Confirmed) Active Rheumatoid Active arthritis(Confirmed) Asthma(Confirmed) Resolved GERD Active (gastroesophageal reflux disease)(Confirmed) History of colon Resolved polyps(Confirmed) HTN Active (hypertension)(Confi rmed) Osteoporosis(Confirm Active ed) Allergies, Adverse Reactions, Alerts Substance Reaction Severity Status sulfa drugs Active methotrexate Active Augmentin Active JACQUELYN Inhibitors Active hydroCHLOROthiazide Active Medications alendronate 70 mg oral tablet 70 mg=1 tab, PO, qWeek, 0 Refill(s) Start Date: 04/06/18 Status: Ordered aspirin 81 mg tablet, enteric coated 81 mg=1 tab, PO, Daily Start Date: 04/06/18 Status: Ordered Centrum 1 tab, PO, Daily, 0 Refill(s) Start Date: 04/06/18 Status: Ordered Citracal + D 250 mg-500 intl units oral tablet, chewable 2 tab, CHEW, 0 Refill(s) Start Date: 04/06/18 Status: Ordered Claritin 10 mg oral tablet 10 mg=1 tab, PO, Daily, 0 Refill(s) Start Date: 04/06/18 Status: Ordered Elemental Iron 325, PO, Daily, 0 Refill(s) Start Date: 04/06/18 Status: Ordered EpiPen Auto-Injector 0.3 mg injectable kit 0.3 mg, IM, ONCE, 0 Refill(s) Start Date: 04/06/18 Status: Ordered estradiol-norethindrone 0.5 mg-0.1 mg oral tablet 1 tab, PO, Daily, 0 Refill(s) Start Date: 04/06/18 Status: Ordered Fish Oil 1000 mg oral capsule 1,000 mg=1 cap, PO, BID, 0 Refill(s) Start Date: 04/06/18 Status: Ordered leflunomide 20 mg oral tablet 20 mg=1 tab, PO, Daily, 0 Refill(s) Start Date: 04/06/18 Status: Ordered Melatonin 1 mg oral tablet 1 mg=1 tab, PO, Bedtime, PRN for insomnia, 0 Refill(s) Start Date: 04/06/18 Status: Ordered montelukast 10 mg oral tablet 10 mg=1 tab, PO, Daily, 0 Refill(s) Start Date: 04/06/18 Status: Ordered olmesartan 40 mg oral tablet 40 mg=1 tab, PO, Daily, 0 Refill(s) Start Date: 04/06/18 Status: Ordered pantoprazole 40 mg oral enteric coated tablet 40 mg=1 tab, PO, Daily, 0 Refill(s) Start Date: 04/06/18 Status: Ordered sertraline 100 mg oral tablet 100 mg=1 tab, PO, Daily, 0 Refill(s) Start Date: 04/06/18 Status: Ordered Sodium Chloride 0.9% IV 1,000 mL 1,000 mL, Rate: 25 ml/hr, Infuse over: 40 hr, Route: IV, Dosing Weight 73.636 kg , Total Volume: 1,000, Start date: 04/07/18 8:21:00 CDT, Duration: 1 day, Stop d ate: 04/08/18 8:20:00 CDT, 1.81, m2 Start Date: 04/07/18 Stop Date: 04/07/18 Status: Discontinued tizanidine 2 mg oral tablet 2 mg=1 tab, PO, PRN, 0 Refill(s) Start Date: 04/06/18 Status: Ordered Results No data available for this section Immunizations No data available for this section Procedures Procedure Date Related Diagnosis Body Site Status Appendectomy Completed Carpal tunnel decompression Completed Cholecystectomy Completed Colonoscopy Completed Esophagogastroduodenoscopy Completed Hysterectomy Completed Miscellaneous operations Completed Miscellaneous operations Completed Miscellaneous operations Completed Tooth extraction Completed Tubal ligation Completed Social History Social History Type Response Substance Abuse Use: None. Alcohol Current Smoking Status Never smoker; Exposure to Tobacco Smoke None; Cigarette Smoking Last 365 Days No; Reg Smoking Cessation Counseling No entered on: 04/06/18 Assessment and Plan No data available for this section
--- OUTSIDE RECORDS SUMMARY | 2019-02-12 17:15 | XMS REPORT | Summary of Care ---
Author Author [facility] Outpatient Imaging [facility] Outpatient [facility] Address Unknown Phone Unavailable Encounter HQ Encntr_alias(FIN) [id number] Date(s): 01/26/18 - 01/26/18 [facility] [address] [facility], [address] [place] [phone] Encounter Diagnosis Cervical disc disorder, unspecified, unspecified cervical region (Final) - Discharge Disposition: Home or Self [...]
--- OUTSIDE RECORDS SUMMARY | 2019-02-12 17:15 | XMS REPORT | Summary of Care ---
Author Author [facility] Address Unknown Phone Unavailable Encounter ANDREA Fung(FIN) [id number] Date(s): 11/03/18 - 12/02/18 [facility] Discharge Disposition: Home or Self Care Attending Physician: Kong Ackeramn MD Vital Signs No data available for [...]
--- OUTSIDE RECORDS SUMMARY | 2019-02-12 17:15 | XMS REPORT | Summary of Care ---
Author Author [facility] Outpatient Imaging [facility] Outpatient Imaging [place] Address Unknown Phone Unavailable Encounter HQ Encntr_alias(FIN) [id number] Date(s): 04/02/18 - 04/02/18 [facility] Outpatient Imaging [place] [address] [facility] [place], [place] [address]- [phone] Discharge Disposition: Home or Self Care Attending [...]
--- OUTSIDE RECORDS SUMMARY | 2019-02-12 17:15 | XMS REPORT | Summary of Care ---
Author Author [facility] Outpatient Imaging [facility] Outpatient [facility] Address Unknown Phone Unavailable Encounter HQ Pavel_hussain(FIN) [id number] Date(s): 11/04/18 - 11/04/18 [facility] [address] [facility], [address] [place] [phone] Discharge Disposition: Home or Self Care Attending Physician: Cas Solorzano DO Referring Physician: Cas Solorzano DO Vital Signs No [...]
[2019-02-12] MEDS ORDERED: SODIUM CHLORIDE 0.9% 1000ML 1,000 ML IV STA (17:19)
[2019-02-12] MEDS ORDERED: CEFTRIAXONE SOD 1 GM/NS 50 ML 50 ML IV SCH ×2 (17:30→17:45)
[2019-02-12 18:02] LABS: BASOPHILS # (AUTO) 0.1 (0.0-0.1); BASOPHILS % 0.5 % (0.0-1.0); EOSINOPHILS # (AUTO) 0.3 (0.0-0.4); EOSINOPHILS % 1.7 % (0.0-6.0); HEMATOCRIT 33.5 % (34.2-44.1); HEMOGLOBIN 11.4 g/dL (12.0-16.0); LYMPHOCYTES # (AUTO) 1.3 (1.0-3.2); LYMPHOCYTES % 8.3 % (18.0-39.1); MEAN CORPUSCULAR HEMOGLOBIN 31.2 pg (28-32); MEAN CORPUSCULAR VOLUME 91.8 fL (81-99); MONOCYTES # (AUTO) 1.1 (0.2-0.8); MONOCYTES % 7.1 % (4.4-11.3); NEUTROPHILS # (AUTO) 12.3 (2.1-6.9); NEUTROPHILS % 81.5 % (38.7-80.0); PLATELET COUNT 422 x10e3/uL (140-360); RED BLOOD COUNT 3.65 x10e6/uL (3.6-5.1); RED CELL DISTRIBUTION WIDTH 12.8 % (11.7-14.4)
[2019-02-12 18:09] LABS: BILIRUBIN,URINE NEGATIVE (NEGATIVE); CLARITY,URINE SL CLOUDY (CLEAR); COLOR,URINE YELLOW (YELLOW); KETONES,URINE TRACE (NEGATIVE); LEUKOCYTE ESTERASE ,URINE 1+ (NEGATIVE); NITRITE,URINE NEGATIVE (NEGATIVE); PROTEIN,URINE DIPSTICK NEGATIVE (NEGATIVE); URINE UROBILINOGEN 0.2 mg/dL (0.2 - 1)
[2019-02-12 18:10] LABS: BACTERIA,URINE MODERATE /HPF; EPITHELIAL CELLS,URINE MODERATE /LPF
[2019-02-12 18:23] LABS: ALBUMIN 3.1 g/dL (3.5-5.0); ALBUMIN/GLOBULIN RATIO 0.7 (0.8-2.0); ANION GAP 15.5 mmol/L (8-16); CALCIUM 10.1 mg/dL (8.4-10.2); CREATININE, SERUM 1.45 mg/dL (0.57-1.11); POTASSIUM 4.5 mmol/L (3.5-5.1)
[2019-02-12 18:30] LABS: CREATINE KINASE MB 1.1 ng/mL (0-5.0)
--- NOTE | 2019-02-12 19:30 | NUR ---
received pt from ER to room 200, AAOx3, resp even and unlabored, ambulates by self with steady gait, able to make needs known, skin intact, c/o of urgency, frequency and dysuria, bed in lowest and locked position, call light in reach
[2019-02-12 20:01] VITALS: BP 150/67
--- NOTE | 2019-02-12 21:00 | NUR ---
Dr. Wilson returned call for consult, ok to place PICC
[2019-02-12] MEDS ORDERED: CELEBREX100 MG PO (21:09)
[2019-02-12] MEDS ORDERED: MELATONIN3 MG PO (21:09)
[2019-02-12] MEDS ORDERED: VITAMIN D1000 UNI1 PO (21:09)
[2019-02-12] MEDS ORDERED: BENICAR20 MG PO (21:09)
[2019-02-12] MEDS ORDERED: FERROUS SULFAT325 MG PO (21:09)
[2019-02-12] MEDS ORDERED: MONTELUKAST SOD10 MG PO (21:09)
[2019-02-12] MEDS ORDERED: ASPIRIN81 MG PO (21:09)
[2019-02-12] MEDS ORDERED: SERTRALINE HCL100 MG PO (21:09)
[2019-02-12] MEDS ORDERED: XYZAL5 MG PO (21:09)
[2019-02-12] MEDS ORDERED: MULTI-VITAMIN1 EACH PO (21:09)
[2019-02-12 21:10] LABS: INR 0.91; PROTHROMBIN TIME 12.7 seconds (11.9-14.5)
[2019-02-12 21:18] LABS: ANION GAP 14.2 mmol/L (8-16); CALCIUM 9.5 mg/dL (8.4-10.2); CREATININE, SERUM 1.16 mg/dL (0.57-1.11); POTASSIUM 4.2 mmol/L (3.5-5.1)
[2019-02-12 22:18] VITALS: BP 150/67
[2019-02-12 22:46] VITALS: BP 150/67
[2019-02-13] VITALS (9 sets, daily range): BP systolic 115–136; BP diastolic 55–64
--- NOTE | 2019-02-13 00:55 | NUR ---
PICC line placed, chest xray ordered
--- NOTE | 2019-02-13 01:11 | Diagnostic Imaging Report ---
Examination: Single AP view of the chest. COMPARISON: None. INDICATION: PICC line placement IMPRESSION: 1. Lines and Tubes: Right-sided PICC line has distal tip projecting at the junction of the right and left innominate veins. Further advancement is recommended. 2. Lungs are well-inflated and grossly clear. No consolidation or effusion. 3. Cardiomediastinal silhouette is normal. Pulmonary vasculature is normal. Rounded convexity rejecting in the left lower paravertebral soft tissues/retrocardiac region may represent a hiatal hernia. 4. No acute bony abnormalities. Signed by: Dr. Christian Samuel M.D. on 02/13/2019 1:07 AM
--- NOTE | 2019-02-13 01:55 | Diagnostic Imaging Report ---
Examination: Single AP view of the chest. COMPARISON: AP chest 02/13/2019 INDICATION: PICC line readjustment IMPRESSION: 1. Lines and Tubes: Interval advancement of previously visualized PICC line, which now has its distal tip projecting in the mid to distal SVC. 2. Otherwise, no significant interval change. Signed by: Dr. Christian Samuel M.D. on 02/13/2019 1:52 AM
[2019-02-13 05:15] LABS: BASOPHILS # (AUTO) 0.1 (0.0-0.1); BASOPHILS % 0.5 % (0.0-1.0); EOSINOPHILS # (AUTO) 0.2 (0.0-0.4); EOSINOPHILS % 1.5 % (0.0-6.0); HEMATOCRIT 31.8 % (34.2-44.1); HEMOGLOBIN 10.5 g/dL (12.0-16.0); LYMPHOCYTES # (AUTO) 1.1 (1.0-3.2); LYMPHOCYTES % 7.3 % (18.0-39.1); MEAN CORPUSCULAR VOLUME 93.8 fL (81-99); MONOCYTES # (AUTO) 0.9 (0.2-0.8); MONOCYTES % 6.4 % (4.4-11.3); NEUTROPHILS # (AUTO) 12.3 (2.1-6.9); NEUTROPHILS % 83.4 % (38.7-80.0); PLATELET COUNT 366 x10e3/uL (140-360); RED BLOOD COUNT 3.39 x10e6/uL (3.6-5.1)
[2019-02-13 05:42] LABS: ALANINE AMINOTRANSFERASE 10 IU/L (0-55); ALBUMIN 2.6 g/dL (3.5-5.0); ALBUMIN/GLOBULIN RATIO 0.7 (0.8-2.0); ALKALINE PHOSPHATASE 109 IU/L (40-150); BLOOD UREA NITROGEN 16 mg/dL (7-26); BUN/CREATININE RATIO 18 (6-25); CALCIUM 9.5 mg/dL (8.4-10.2); CARBON DIOXIDE 18 mmol/L (22-29); CHLORIDE 101 mmol/L (98-107); EST GLOMERULAR FILTRATION RATE > 60 ML/MIN (60-); GLUCOSE 93 mg/dL (74-118); SODIUM 130 mmol/L (136-145)
[2019-02-13 06:02] LABS: ANION GAP 16.2 mmol/L (8-16); POTASSIUM 5.2 mmol/L (3.5-5.1)
--- NOTE | 2019-02-13 07:00 | NUR ---
RECEIVED PT AAOX3. BED AT LOWEST POSITION AND LOCKED. CALL TIMMONS WITH IN REACH. PT DENIES NEEDS AT THIS TIME.
--- NOTE | 2019-02-13 10:00 | NUR ---
PERIPHERAL IV RAC 18G REMOVED. TIP IS INTACT. BLEEDING STOPPED AND DRESSING APPLIED. PT DENIED FURTHER NEEDS. PICC LINE IS OKAY TO USE PER DR. CABRERA
[2019-02-13] MEDS: SODIUM CHLORIDE 0.9% 1000ML 1,000 ML IV SCH ×2 (10:15→22:00)
[2019-02-13] MEDS: CHOLECALCIFEROL 1,000 UNIT TAB PO SCH (10:30)
[2019-02-13] MEDS: LORATADINE 10 MG TAB PO SCH (10:30)
[2019-02-13] MEDS: PANTOPRAZOLE SOD 40 MG TABEC PO SCH (10:30)
[2019-02-13] MEDS: ESTRADIOL 1 MG TAB PO SCH (10:30)
[2019-02-13] MEDS: ASPIRIN 81 MG CHEW TAB PO SCH (10:30)
[2019-02-13] MEDS: SERTRALINE HCL 100 MG TAB PO SCH (10:30)
[2019-02-13] MEDS: FERROUS SULFATE 325 MG TAB PO SCH (10:30)
[2019-02-13] MEDS: MULTIVITAMINS/MINERALS TAB PO SCH (10:30)
--- NOTE | 2019-02-13 11:00 | NUR ---
CALLED AND INFORMED DR. ESTRADA ABOUT POTASSIUM LEVEL 5.2. NO NEW ORDERS RECEIVED.
[2019-02-13] MEDS: MEROPENEM 1GM 100 ML IV SCH ×2 (11:30→20:32)
[2019-02-13] MEDS ORDERED: MEROPENEM 1GM 100 ML IV SCH (14:00)
[2019-02-13] MEDS ORDERED: MEROPENEM 1GRAM 1 GM in SODIUM CHLORIDE 0.9% 100 ML 100 ML IV SCH (14:00)
--- NOTE | 2019-02-13 15:53 | History and Physical ---
CHIEF COMPLAINT: Complicated urinary tract infection with failed outpatient treatment. SUMMARY: The patient is a 68-year-old female with complicated urinary tract infection with ESBL Klebsiella. The patient has been on antibiotics as outpatient for the past week with Dr. Usman Garcia and apparently, she had resistant bacteria. The patient is now admitted to the hospital for IV antibiotics. The patient has been placed on antibiotic and the patient is pending for arrangement for outpatient treatment. The patient has a PICC line placement yesterday on the right upper extremity. PAST MEDICAL HISTORY: Urge incontinence with recurrent urinary tract infection. Complicated urinary tract infection. Osteoarthritis, hypertension, depression, complicated urological problem with previous surgery. SOCIAL HISTORY: The patient does not smoke or use alcohol. No recreational drugs. ALLERGIES: JACQUELYN INHIBITOR, AMOXICILLIN, CLAVULANIC ACID, HCTZ, LISINOPRIL, METHOTREXATE, SULFAMETHOXAZOLE/TRIMETHOPRIM. HOME MEDICATIONS: 1. Aspirin. 2. Celebrex. 3. Vitamin D3. 4. Estradiol. 5. Ferrous sulfate. 6. Arava. 7. Xyzal. 8. Melatonin. 9. Singulair. 10. Multivitamin. 11. Benicar. 12. Protonix. 13. Zoloft. PHYSICAL EXAMINATION: VITAL SIGNS: Temperature is 99, blood pressure 128/60, and respirations 20. GENERAL: The patient is not in acute distress. She is awake. HEENT: Normocephalic, atraumatic. Anicteric. NECK: Supple grossly. PULMONARY: Clear. CARDIOVASCULAR: Regular rate and rhythm. ABDOMEN: Soft, nontender, non-distention. EXTREMITIES: Right arm PICC line. No edema of lower extremities. NEUROLOGIC: No focal deficit. LABORATORY DATA: WBC 15.1, hemoglobin 11.4, hematocrit 33.5, and platelets 422. Chemistry; sodium 129, potassium 4.5, chloride 96, bicarb is 22, BUN is 16, creatinine 1.4, and glucose is 94. Urinalysis; 1+ leukocytes rate, moderate bacteria. Coagulation is normal. IMAGING TESTS: None. IMPRESSION: 1. Complicated urinary tract infection with extended-spectrum beta-lactamase. 2. Hyponatremia, most likely secondary to dehydration. PLAN: 1. Adjust the patient's home medication. On meropenem. Arrangement for IV antibiotics as outpatient. 2. The patient has been seen by Dr. Usman Garcia in consultation with Dr. Julio Muller. MD FRANKLIN Armenta /[id number]
--- NOTE | 2019-02-13 19:00 | NUR ---
BEDSIDE SHIFT REPORT GIVEN TO AIRCRAFT CLEANING SUPERVISOR RN. PT DENIES NEEDS AT THIS TIME.
[2019-02-13] MEDS ORDERED: ACETAMINOPHEN 325 MG TAB PO PRN (19:45)
[2019-02-13] MEDS: MELATONIN 3 MG TAB PO SCH (20:32)
[2019-02-13] MEDS: MONTELUKAST SODIUM 10 MG TAB PO SCH (20:32)
[2019-02-14] VITALS (8 sets, daily range): BP systolic 106–139; BP diastolic 55–65
[2019-02-14] MEDS: MEROPENEM 1GM 100 ML IV SCH ×3 (03:13→19:30)
[2019-02-14 05:44] LABS: BASOPHILS # (AUTO) 0.1 (0.0-0.1); BASOPHILS % 0.6 % (0.0-1.0); EOSINOPHILS # (AUTO) 0.2 (0.0-0.4); EOSINOPHILS % 1.5 % (0.0-6.0); HEMOGLOBIN 10.3 g/dL (12.0-16.0); LYMPHOCYTES # (AUTO) 0.9 (1.0-3.2); MEAN CORPUSCULAR HEMOGLOBIN 31.5 pg (28-32); MEAN CORPUSCULAR HGB CONC 34.3 g/dL (31-35); MEAN CORPUSCULAR VOLUME 91.7 fL (81-99); MONOCYTES % 7.4 % (4.4-11.3); NEUTROPHILS # (AUTO) 10.6 (2.1-6.9); NEUTROPHILS % 82.4 % (38.7-80.0); PLATELET COUNT 370 x10e3/uL (140-360); RED BLOOD COUNT 3.27 x10e6/uL (3.6-5.1); RED CELL DISTRIBUTION WIDTH 12.9 % (11.7-14.4)
[2019-02-14] MEDS: SODIUM CHLORIDE 0.9% 1000ML 1,000 ML IV SCH ×2 (06:15→16:15)
[2019-02-14 06:30] LABS: ANION GAP 12.4 mmol/L (8-16); BLOOD UREA NITROGEN 11 mg/dL (7-26); BUN/CREATININE RATIO 15 (6-25); CALCIUM 9.5 mg/dL (8.4-10.2); CARBON DIOXIDE 22 mmol/L (22-29); CHLORIDE 102 mmol/L (98-107); CREATININE, SERUM 0.72 mg/dL (0.57-1.11); EST GLOMERULAR FILTRATION RATE > 60 ML/MIN (60-); GLUCOSE 94 mg/dL (74-118); POTASSIUM 4.4 mmol/L (3.5-5.1); SODIUM 132 mmol/L (136-145)
--- NOTE | 2019-02-14 07:00 | NUR ---
RECEIVED BEDSIDE SHIFT REPORT FROM BREAKER MACHINE OPERATOR RN. PT AAOX3. BED AT LOWEST POSITION AND LOCKED. CALL TIMMONS WITH IN REACH. PT DENIES NEEDS AT THIS TIME.
[2019-02-14] MEDS: CHOLECALCIFEROL 1,000 UNIT TAB PO SCH (08:01)
[2019-02-14] MEDS: ASPIRIN 81 MG CHEW TAB PO SCH (08:01)
[2019-02-14] MEDS: LORATADINE 10 MG TAB PO SCH (08:01)
[2019-02-14] MEDS: FERROUS SULFATE 325 MG TAB PO SCH (08:01)
[2019-02-14] MEDS: ESTRADIOL 1 MG TAB PO SCH (08:01)
[2019-02-14] MEDS: PANTOPRAZOLE SOD 40 MG TABEC PO SCH (08:02)
[2019-02-14] MEDS: MULTIVITAMINS/MINERALS TAB PO SCH (08:02)
[2019-02-14] MEDS: SERTRALINE HCL 100 MG TAB PO SCH (08:02)
[2019-02-14] MEDS ORDERED: ASPIRIN 81 MG CHEW TAB PO SCH (09:00)
--- NOTE | 2019-02-14 19:00 | NUR ---
BEDSIDE SHIFT REPORT GIVEN TO COMMUNITY RELATIONS REPRESENTATIVE RN. PT DENIED FURTHER NEEDS.
--- NOTE | 2019-02-14 20:21 | NUR ---
RECEIVED PT IN BED AOX3.RESPIRATIONS AE EVEN AND UNLABORED .SKIN WARM AND DRY TO TOUCH .DENIES PAIN CALL LIGHT WITH IN REACH .CONTINUE TO MONITOR
[2019-02-14] MEDS: MONTELUKAST SODIUM 10 MG TAB PO SCH (21:00)
[2019-02-14] MEDS: MELATONIN 3 MG TAB PO SCH (21:00)
[2019-02-15] VITALS (9 sets, daily range): BP systolic 120–142; BP diastolic 58–67
[2019-02-15] MEDS: SODIUM CHLORIDE 0.9% 1000ML 1,000 ML IV SCH ×3 (02:15→22:35)
[2019-02-15] MEDS: MEROPENEM 1GM 100 ML IV SCH ×3 (03:30→19:30)
[2019-02-15 06:03] LABS: BASOPHILS # (AUTO) 0.1 (0.0-0.1); BASOPHILS % 0.5 % (0.0-1.0); EOSINOPHILS # (AUTO) 0.2 (0.0-0.4); EOSINOPHILS % 1.6 % (0.0-6.0); HEMOGLOBIN 10.1 g/dL (12.0-16.0); LYMPHOCYTES # (AUTO) 0.9 (1.0-3.2); LYMPHOCYTES % 7.6 % (18.0-39.1); MEAN CORPUSCULAR HEMOGLOBIN 30.7 pg (28-32); MEAN CORPUSCULAR HGB CONC 33.7 g/dL (31-35); MEAN CORPUSCULAR VOLUME 91.2 fL (81-99); MONOCYTES # (AUTO) 0.8 (0.2-0.8); MONOCYTES % 6.7 % (4.4-11.3); NEUTROPHILS % 82.8 % (38.7-80.0); PLATELET COUNT 348 x10e3/uL (140-360); RED BLOOD COUNT 3.29 x10e6/uL (3.6-5.1); RED CELL DISTRIBUTION WIDTH 12.7 % (11.7-14.4)
[2019-02-15 06:13] LABS: ANION GAP 12.1 mmol/L (8-16); BLOOD UREA NITROGEN 10 mg/dL (7-26); BUN/CREATININE RATIO 14 (6-25); CALCIUM 9.4 mg/dL (8.4-10.2); CARBON DIOXIDE 23 mmol/L (22-29); CHLORIDE 100 mmol/L (98-107); CREATININE, SERUM 0.71 mg/dL (0.57-1.11); EST GLOMERULAR FILTRATION RATE > 60 ML/MIN (60-); GLUCOSE 89 mg/dL (74-118); POTASSIUM 4.1 mmol/L (3.5-5.1); SODIUM 131 mmol/L (136-145)
--- NOTE | 2019-02-15 06:13 | NUR ---
PT RESTING DENIES PAIN .NO ACUTE DISTRESS NOTED .CALL LIGHT WITH IN REACH
--- NOTE | 2019-02-15 07:15 | NUR ---
BEDSIDE REPORT GIVEN TO THE ON COMING NURSE .
[2019-02-15] MEDS: ASPIRIN 81 MG CHEW TAB PO SCH (09:40)
[2019-02-15] MEDS: MULTIVITAMINS/MINERALS TAB PO SCH (09:40)
[2019-02-15] MEDS: PANTOPRAZOLE SOD 40 MG TABEC PO SCH (09:40)
[2019-02-15] MEDS: ESTRADIOL 1 MG TAB PO SCH (09:40)
[2019-02-15] MEDS: SERTRALINE HCL 100 MG TAB PO SCH (09:40)
[2019-02-15] MEDS: CHOLECALCIFEROL 1,000 UNIT TAB PO SCH (09:40)
[2019-02-15] MEDS: LORATADINE 10 MG TAB PO SCH (09:40)
[2019-02-15] MEDS: FERROUS SULFATE 325 MG TAB PO SCH (09:40)
--- NOTE | 2019-02-15 10:01 | NUR ---
IMM letter delivered and explained to pt. She verbalized understanding, stated she's ready to go home. Signed copy placed in chart. Copy to pt's transition of care folder.
--- NOTE | 2019-02-15 19:31 | NUR ---
Report given to oncoming nurse of patient's status. No s/s of acute distress noted.
--- NOTE | 2019-02-15 20:19 | NUR ---
PT RESTING .NO ACUTE DISTRESS NOTED .CALL LIGHT WITH IN REACH .CONTINUE TO MONITOR
[2019-02-15] MEDS: MELATONIN 3 MG TAB PO SCH (21:55)
[2019-02-15] MEDS: MONTELUKAST SODIUM 10 MG TAB PO SCH (21:55)
--- NOTE | 2019-02-16 | Consultation ---
DATE OF CONSULTATION: REASON FOR CONSULTATION: UTI, multidrug resistant. HISTORY OF PRESENT ILLNESS: This patient is very pleasant 68-year-old white female, who has history of hypertension, osteoarthritis, incontinence, comes in with fever, chills, not feeling well. Apparently, she has been sick for a few days so she came here. She took oral antibiotic as outpatient without any improvement. Came to the hospital where she was found with UTI and started on intravenous antibiotics. Currently, she is feeling better since she came here. The patient took oral antibiotic without any improvement. When she first came here, her blood cultures and urine culture obtained, all negative, but when she first came, her white count was 15.14, hemoglobin 11, hematocrit 33. Her sodium 130, potassium 4.1, creatinine 0.75. The patient was started on meropenem and apparently she got better with it. REVIEW OF SYSTEMS: At the present time: HEENT: Negative. PULMONARY: Negative. CARDIAC: Negative. : Negative. SKIN: There is no other rash. JOINT: Negative. NEURO: Negative. MEDICATION LIST: She is on meropenem, aspirin, Zoloft, and Claritin. When she first came, she was having a fever of 100, 101.4, all those resolved. PHYSICAL EXAMINATION: GENERAL: She is currently alert, oriented, does not seem to be in acute distress. VITAL SIGNS: Stable. Currently afebrile. When she first came, she was running fever. HEENT: Normocephalic. Not icteric. NECK: Supple. CHEST: Clear bilateral. HEART: S1, S2. No S3, S4, or murmur. ABDOMEN: Soft. Bowel sounds present. No tenderness. No hepatosplenomegaly. EXTREMITIES: No edema. SKIN: No rash. IMPRESSION: UTI, present on admission and fortunately cultures are negative. The patient was started on antibiotic, but the patient did fail oral antibiotic and did get better with meropenem, so I think we will just finish 14 days of meropenem. I will see the patient as outpatient. We will get a PICC line. She will be discharged with meropenem 1 g IV q.8 hours to finish 14 days. Further recommendations to follow. Thank you for asking me to see this patient. We will discuss case management with Internal Medicine. MD BINU Nunez/SARAL /[id number]
[2019-02-16 04:39] VITALS: BP 137/70
[2019-02-16] MEDS: MEROPENEM 1GM 100 ML IV SCH ×4 (05:19→19:00)
--- NOTE | 2019-02-16 06:28 | NUR ---
PT RESTING .NO ACUTE DISTRESS NOTED .CONTINUE TO MONITOR
--- NOTE | 2019-02-16 07:17 | NUR ---
DR SORIA HAS SEEN THE PT YESTERDAY .ACCORDING TO THE DR SORIA PT IS OK TO GO HOME
[2019-02-16 07:57] VITALS: BP 130/68
[2019-02-16 08:20] VITALS: BP 130/68
[2019-02-16] MEDS: LORATADINE 10 MG TAB PO SCH (08:30)
[2019-02-16] MEDS: ASPIRIN 81 MG CHEW TAB PO SCH (08:30)
[2019-02-16] MEDS: SERTRALINE HCL 100 MG TAB PO SCH (08:30)
[2019-02-16] MEDS: FERROUS SULFATE 325 MG TAB PO SCH (08:30)
[2019-02-16] MEDS: PANTOPRAZOLE SOD 40 MG TABEC PO SCH (08:30)
[2019-02-16] MEDS: CHOLECALCIFEROL 1,000 UNIT TAB PO SCH (08:30)
[2019-02-16] MEDS: ESTRADIOL 1 MG TAB PO SCH (08:30)
[2019-02-16] MEDS: MULTIVITAMINS/MINERALS TAB PO SCH (08:30)
--- NOTE | 2019-02-16 09:00 | NUR ---
CM SPOKE TO PATIENT AT BEDSIDE REGARDING HOME IV INFUSION ORDERS. PATIENT AWARE AND VERBALLY AGREES TO RECEIVE IV ABX THERAPY IN THE HOME. PATIENT RECEIVES CHOICES FOR IN NETWORK AND OUT OF NETWORK INFUSION COMPANIES. PATIENT CHOSE IN NETWORK [employer] AT THIS TIME. CHOICE LETTER SIGNED AND PLACED IN CHART. CLINICAL SENT TO [facility]. PENDING ACCEPTANCE AND SET UP WITH HOME HEALTH COMPANY FOR DISCHARGE. COMPANY AWARE PATIENT WORKS AND LIVES IN [place], [place]. [facility] [employer] (P) [phone] (F) [phone] LIAISON- NARCISA AGUILLON PENDING HOME HEALTH TO SERVICE WITH INFUSION COMPANY.
[2019-02-16 11:22] VITALS: BP 143/73
--- NOTE | 2019-02-16 12:05 | NUR ---
Per Leah with Home IV abx company, patient will receive a box of abx to be taken with patient upon discharge. Patient will be visited at home by a nurse to educate her on infusion. Patient to received 1930 dose prior to discharge.
--- NOTE | 2019-02-16 13:01 | NUR ---
aware of [facility] message. See orders.
[2019-02-16 15:17] VITALS: BP 138/68
--- NOTE | 2019-02-16 18:00 | NUR ---
1930 IV Merrem dose given at 1800 per patient's request.
[2019-02-16] MEDS: SODIUM CHLORIDE 0.9% 1000ML 1,000 ML IV SCH (18:15)
--- NOTE | 2019-02-16 19:00 | NUR ---
Bedside report given to oncoming nurse of patient's status. Patient has been discharged. Waiting for ride. AAOX3 to time, person, place. Respirations even and unlabored. PICC line dressing clean, dry, and intact.
--- NOTE | 2019-02-16 19:05 | NUR ---
REPORT GIVEN TO ONCOMING NURSE OF PATIENTS STATUS. DISCHARGE ASSESSMENT TO BE DONE BY ONCOMING NURSE
== END 2019-02-16 19:47 | disposition home or self-care (01) | DRG 690 ==
LOC: ER 17:10 → ERHOLD 17:38 → MED/SURG2 18:59
PROVIDERS: ADMIT Internal Medicine; ATTEND Internal Medicine
PROC: 02HV33Z Insertion of Infusion Device into Superior Vena Cava, Percutaneous Approach (ICD-10-PCS; principal; 2019-02-13)
DX: N39.0 Urinary tract infection, site not specified (principal); E87.1 Hypo-osmolality and hyponatremia; F32.9 Major depressive disorder, single episode, unspecified; B96.20 Unspecified Escherichia coli [E. coli] as the cause of diseases classified elsewhere; Z16.12 Extended spectrum beta lactamase (ESBL) resistance; M19.90 Unspecified osteoarthritis, unspecified site; R32 Unspecified urinary incontinence
CPT/HCPCS: 36415; 36569; 71045; 80048; 80053; 81001; 82550; 82553; 83605; 84484; 85025; 85610; 87040; 87086; 99284; J0696; J7030

== ENCOUNTER 2019-02-26 15:51 | Emergency (ER) | payer OTHER ==
[~2019-02-26] VITALS: Ht 152.4 cm; Wt 72.6 kg
[~2019-02-26 15:51] MED LIST changes: +ASPIRIN81 MG PO; +CELEBREX100 MG PO; +FERROUS SULFAT325 MG PO; +MELATONIN3 MG PO; +MONTELUKAST SOD10 MG PO; +MULTI-VITAMIN1 EACH PO; +VITAMIN D1000 UNI1 PO; +XYZAL5 MG PO
--- OUTSIDE RECORDS SUMMARY | 2019-02-26 15:57 | XMS REPORT ---
Author Author [facility] Address Unknown Phone Unavailable Care Team Providers Care Clinical Data Specialist Name Role Phone PETRONA CABRERA Unavailable Unavailable Problems This patient has no known problems. Allergies, Adverse Reactions, Alerts This patient has no known allergies or adverse reactions. Medications This patient has no known medications. Results Test Description Test Time Test Comments Text Results Atomic Results Result Comments CHEST XRAY LINE PLACEMENT 2019-02-13 01:51:00 [place] [address] Patient Name: LISA GARZA MR #: [id number] : 1950 Age/Sex: 68/F Req #: [id number] Adm Physician: PETRONA CABRERA MD Ordered by: PETRONA CABRERA MD Report #: [id number] Location: MED/SURG2 Room/Bed: 200 Procedure: [id number] DX/CHEST XRAY LINE PLACEMENT Exam Date: Exam Time: REPORT STATUS: Signed Examination: Single AP view of the chest. COMPARISON: AP chest 02/13/2019 INDICATION: PICC line readjustment IMPRESSION: 1. Lines and Tubes: Interval advancement of previously visualized PICC line, which now has its distal tip projecting in the mid to distal SVC. 2. Otherwise, no significant interval change. Signed by: Dr. Serena Samuel M.D. on 02/13/2019 1:52 AM Dictated By: SERENA SAMUEL MD 1 Transcribed By: KIM on 02/13/19151 COPY TO: PETRONA CABRERA MD CHEST XRAY LINE PLACEMENT 2019-02-13 01:06:00 [place] [address] Patient Name: LISA GARZA MR #: [id number] : 1950 Age/Sex: 68/F Req #: [id number] Adm Physician: PETRONA CABRERA MD Ordered by: PETRONA CABRERA MD Report #: [id number] Location: MED/SURG2 Room/Bed: 200 Procedure: [id number] DX/CHEST XRAY LINE PLACEMENT Exam Date: 02/13/19 Exam Time: 54 REPORT STATUS: Signed Examination: Single AP view of the chest. NIKOLE RISON: None. INDICATION: PICC line placement IMPRESSION: 1. Lines and Tubes: Right-sided PICC line has distal tip projecting at the junction of the right and left innominate veins. Further advancement is recommended. 2. Lungs are well-inflated and grossly clear. No consolidation or effusion. 3. Cardiomediastinal silhouette is normal. Pulmonary vasculature is normal. Rounded convexity rejecting in the left lower paravertebral soft tissues/retrocardiac region may represent a hiatal hernia. 4. No acute bony abnormalities. Signed by: Dr. Serena Samuel M.D. on 02/13/2019 1:07 AM Dictated By: SERENA SAMUEL MD 6 Transcribed By: KIM on 02/13/19106 COPY TO: PETRONA CABRERA MD
[2019-02-26 17:44] VITALS: BP 149/71
== END 2019-02-26 17:55 | disposition home or self-care (01) ==
LOC: ER 15:51
DX: T82.898A Other specified complication of vascular prosthetic devices, implants and grafts, initial encounter (principal); N30.90 Cystitis, unspecified without hematuria
CPT/HCPCS: 99283

== ENCOUNTER → 2021-04-18 | Day surgery (SDC) | payer OTHER ==
[2021-04-16 11:54] LABS: BASOPHILS # (AUTO) 0.1 (0.0-0.1); BASOPHILS % 1.1 % (0.0-1.0); EOSINOPHILS # (AUTO) 0.2 (0.0-0.4); EOSINOPHILS % 2.6 % (0.0-6.0); HEMATOCRIT 32.5 % (34.2-44.1); HEMOGLOBIN 11.3 g/dL (12.0-16.0); LYMPHOCYTES # (AUTO) 0.8 (1.0-3.2); LYMPHOCYTES % 13.1 % (18.0-39.1); MEAN CORPUSCULAR HEMOGLOBIN 32.7 pg (28-32); MEAN CORPUSCULAR HGB CONC 34.8 g/dL (31-35); MEAN CORPUSCULAR VOLUME 93.9 fL (81-99); MONOCYTES # (AUTO) 0.6 (0.2-0.8); MONOCYTES % 9.3 % (4.4-11.3); NEUTROPHILS # (AUTO) 4.7 (2.1-6.9); NEUTROPHILS % 73.6 % (38.7-80.0); PLATELET COUNT 212 x10e3/uL (140-360); RED BLOOD COUNT 3.46 x10e6/uL (3.6-5.1); RED CELL DISTRIBUTION WIDTH 11.6 % (11.7-14.4)
[2021-04-16 12:10] LABS: ANION GAP 12.7 mmol/L (8-16); CREATININE, SERUM 1.1 mg/dL (0.57-1.11); POTASSIUM 3.7 mmol/L (3.5-5.1)
[~2021-04-18] MED LIST changes: +ALBUTEROL/IPRATROPIUM 3 ML NEB ONE; +B&O 60MG R/S 60 MG SUPP PR ONE; +BUPIVACAINE HCL 0.5% INJ 30 ML VIAL INJ ONE; +CLINDAMYCIN 300MG 50 ML IV ONE; +DEXAMETHASONE SOD PHOS INJ 4 MG/ML VIAL ONE; +FAMOTIDINE20 MG PO; +FENTANYL CITRATE/PF 100MCG/2 ML INJ ONE; +GENTAMICIN 80MG/NS 100 ML 200 ML IV ONE; +HYGROTON25 MG PO; +IOPAMIDOL 300MG/ML 50ML INFUS..BTL IV ONE; +LIDOCAINE 2%/ EPINEPHRINE 20ML MDV ONE; +LIDOCAINE HCL (LTA) 4 ML SOLN ONE; +METHENAMINE HIPP1 GM PO; +MIDAZOLAM HCL 2 MG/2 ML VIAL ONE; +MUPIROCIN 2% OINT 22 GM TUBE ONE; +ONDANSETRON HCL INJ 2MG/ML 2ML 2 MG/ML VIAL ONE; +PHENYLEPHRINE HCL 1% 10 MG/ML VIAL ONE; +POVIDONE IODINE 0.05% 0.05 % ML PO ONE; +PROPOFOL IV EMULSION 10 MG/ML 20 ML VIAL ONE; +SEVOFLURANE INHAL SOLN 250 ML PEN BTL ONE; +SUCCINYLCHOLINE CHLORIDE 20 MG/ML 10ML VIAL ONE
[2021-04-18 10:11] LABS: ANION GAP 14.7 mmol/L (8-16); CALCIUM 9.4 mg/dL (8.4-10.2); CREATININE, SERUM 0.98 mg/dL (0.57-1.11); POTASSIUM 4.7 mmol/L (3.5-5.1)
[2021-04-18 15:16] VITALS: BP 122/78
== END | disposition home or self-care (01) ==
LOC: OR 08:15
PROVIDERS: ATTEND Urology
DX: T83.110A Breakdown (mechanical) of urinary electronic stimulator device, initial encounter (principal); N39.0 Urinary tract infection, site not specified; N39.41 Urge incontinence; N13.8 Other obstructive and reflux uropathy; N13.4 Hydroureter; N81.10 Cystocele, unspecified; N81.6 Rectocele; N95.2 Postmenopausal atrophic vaginitis; I10 Essential (primary) hypertension; K21.9 Gastro-esophageal reflux disease without esophagitis; E87.1 Hypo-osmolality and hyponatremia; M06.9 Rheumatoid arthritis, unspecified; F32.9 Major depressive disorder, single episode, unspecified; Y83.8 Other surgical procedures as the cause of abnormal reaction of the patient, or of later complication, without mention of misadventure at the time of the procedure; Z88.1 Allergy status to other antibiotic agents; Z88.0 Allergy status to penicillin; Z88.8 Allergy status to other drugs, medicaments and biological substances; Z91.018 Allergy to other foods; Z01.810 Encounter for preprocedural cardiovascular examination; Z01.812 Encounter for preprocedural laboratory examination; Z01.818 Encounter for other preprocedural examination
CPT/HCPCS: 36415 ×2; 52005; 64581; 64590; 71046; 74420; 76000; 80048 ×2; 85025; 87086; 87186; 88300; 93005; 95972; C1776; J0330; J1100; J1580; J2001; J2250; J2370; J2405; J2704; J3010; L8679; Q9967

== ENCOUNTER 2021-08-02 05:35 | Observation (INO) | payer OTHER ==
[2021-07-31 12:47] LABS: BASOPHILS # (AUTO) 0.1 (0.0-0.1); BASOPHILS % 0.5 % (0.0-1.0); EOSINOPHILS # (AUTO) 0.3 (0.0-0.4); EOSINOPHILS % 3.4 % (0.0-6.0); HEMATOCRIT 35.8 % (34.2-44.1); HEMOGLOBIN 11.6 g/dL (12.0-16.0); LYMPHOCYTES # (AUTO) 0.9 (1.0-3.2); LYMPHOCYTES % 10.3 % (18.0-39.1); MEAN CORPUSCULAR HEMOGLOBIN 30.6 pg (28-32); MEAN CORPUSCULAR HGB CONC 32.4 g/dL (31-35); MEAN CORPUSCULAR VOLUME 94.5 fL (81-99); MONOCYTES # (AUTO) 0.5 (0.2-0.8); MONOCYTES % 5.9 % (4.4-11.3); NEUTROPHILS # (AUTO) 7.3 (2.1-6.9); NEUTROPHILS % 79.6 % (38.7-80.0); PLATELET COUNT 202 x10e3/uL (140-360); RED BLOOD COUNT 3.79 x10e6/uL (3.6-5.1); RED CELL DISTRIBUTION WIDTH 12.4 % (11.7-14.4)
[2021-07-31 13:12] LABS: INR 0.92; PARTIAL THROMBOPLASTIN TIME 26.4 seconds (23.8-35.5); PROTHROMBIN TIME 13.1 seconds (11.9-14.5)
[2021-07-31 13:23] LABS: ANION GAP 16.1 mmol/L (8-16); CREATININE, SERUM 1.34 mg/dL (0.57-1.11); POTASSIUM 4.1 mmol/L (3.5-5.1)
[~2021-08-02] VITALS: Ht 154.9 cm; Wt 61.2 kg
[~2021-08-02 05:35] MED LIST changes: -ALBUTEROL/IPRATROPIUM 3 ML NEB ONE; -B&O 60MG R/S 60 MG SUPP PR ONE; -BUPIVACAINE HCL 0.5% INJ 30 ML VIAL INJ ONE; -CLINDAMYCIN 300MG 50 ML IV ONE; -DEXAMETHASONE SOD PHOS INJ 4 MG/ML VIAL ONE; -FENTANYL CITRATE/PF 100MCG/2 ML INJ ONE; -GENTAMICIN 80MG/NS 100 ML 200 ML IV ONE; -IOPAMIDOL 300MG/ML 50ML INFUS..BTL IV ONE; -LIDOCAINE 2%/ EPINEPHRINE 20ML MDV ONE; -LIDOCAINE HCL (LTA) 4 ML SOLN ONE; -MIDAZOLAM HCL 2 MG/2 ML VIAL ONE; +MOBIC7.5 MG PO; -MUPIROCIN 2% OINT 22 GM TUBE ONE; -ONDANSETRON HCL INJ 2MG/ML 2ML 2 MG/ML VIAL ONE; -PHENYLEPHRINE HCL 1% 10 MG/ML VIAL ONE; -POVIDONE IODINE 0.05% 0.05 % ML PO ONE; -PROPOFOL IV EMULSION 10 MG/ML 20 ML VIAL ONE; -SEVOFLURANE INHAL SOLN 250 ML PEN BTL ONE; -SUCCINYLCHOLINE CHLORIDE 20 MG/ML 10ML VIAL ONE
[2021-08-02] MEDS ORDERED: Vancomycin IV 1 GM VIAL ONE ×2 (06:28→06:48)
[2021-08-02] MEDS ORDERED: SODIUM CHLORIDE 0.9% 250ML 250 ML ONE (06:29)
[2021-08-02] MEDS ORDERED: THROMBIN FOR SOLN 5,000 UNIT VIAL ONE (06:48)
[2021-08-02] MEDS ORDERED: LIDOCAINE 1% W/EPINEPHRINE 20 ML VIAL ONE (06:48)
[2021-08-02] MEDS ORDERED: ACETAMINOPHEN 1000 MG/100 ML 100 ML IV ONE (06:56)
[2021-08-02] MEDS ORDERED: HYDROCODON-ACE1 EA12 PO (09:59)
[2021-08-02] MEDS ORDERED: PROMETHAZINE HCL (IM) 25 MG/ML VIAL IM PRN (10:00)
[2021-08-02] MEDS ORDERED: ONDANSETRON HCL INJ 2MG/ML 2ML 2 MG/ML VIAL IV PRN (10:00)
[2021-08-02] MEDS ORDERED: MAGNESIUM/ALUMINUM/SIMETHICONE 30 ML UDC PO PRN (10:00)
[2021-08-02] MEDS ORDERED: HYDROMORPHONE 2MG/ML 2 MG/ML ML IV PRN (10:00)
[2021-08-02] MEDS ORDERED: Morphine 10mg syringe 10 MG/ML INJ IM PRN (10:00)
[2021-08-02] MEDS ORDERED: ZOLPIDEM TARTRATE 5 MG TAB PO PRN (10:00)
[2021-08-02] MEDS ORDERED: ACETAMINOPHEN 325 MG TAB PO PRN (10:00)
[2021-08-02 11:04] VITALS: BP 103/57
[2021-08-02 11:11] VITALS: BP 106/62
[2021-08-02] MEDS ORDERED: LIDOCAINE HCL 2% LOCAL INJ 5 ML SDV VIAL INJ ONE (12:50)
[2021-08-02] MEDS ORDERED: ROCURONIUM BROMIDE 10 MG/ML 5ML VIAL IV ONE (12:50)
[2021-08-02] MEDS ORDERED: SEVOFLURANE INHAL SOLN 250 ML PEN BTL ONE (12:50)
[2021-08-02] MEDS ORDERED: PROPOFOL IV EMULSION 10 MG/ML 20 ML VIAL ONE (12:50)
[2021-08-02] MEDS ORDERED: POVIDONE IODINE 0.05% 0.05 % ML PO ONE (12:50)
[2021-08-02] MEDS ORDERED: DEXAMETHASONE SOD PHOS INJ 4 MG/ML SDV ONE (12:50)
[2021-08-02] MEDS ORDERED: EPHEDRINE SULFATE INJ 50 MG/ML VIAL ONE (12:50)
[2021-08-02] MEDS ORDERED: ONDANSETRON HCL INJ 2MG/ML 2ML 2 MG/ML VIAL ONE (12:50)
[2021-08-02] MEDS: FAMOTIDINE 20 MG TAB PO SCH (13:46)
[2021-08-02] MEDS: CARISOPRODOL 350 MG TAB PO PRN (13:46)
[2021-08-02] MEDS: OXYCODONE/ACETAMINOPHEN 5-325 1 EACH TABLET PO PRN ×2 (13:46→20:45)
[2021-08-02 15:59] VITALS: BP 88/47
[2021-08-02] MEDS: LACTATED RINGER'S 1,000 ML IV SCH (17:15)
[2021-08-02] MEDS ORDERED: MIDAZOLAM HCL 2 MG/2 ML VIAL ONE (17:16)
[2021-08-02] MEDS ORDERED: FENTANYL CITRATE/PF 100MCG/2 ML INJ ONE (17:16)
[2021-08-02 20:00] VITALS: BP 93/52
[2021-08-02] MEDS: Vancomycin IV 1 GM in SODIUM CHLORIDE 0.9% 250ML 250 ML IV SCH (20:43)
[2021-08-02 21:00] VITALS: BP 93/52
[2021-08-02] MEDS ORDERED: CHLORTHALIDONE 25 MG TAB PO SCH (21:00)
[2021-08-02] MEDS ORDERED: SERTRALINE HCL 50 MG TAB PO SCH (21:00)
[2021-08-02] MEDS ORDERED: MELATONIN 5 MG TABLET PO SCH (21:00)
[2021-08-03] VITALS: BP 99/67
[2021-08-03] MEDS: CARISOPRODOL 350 MG TAB PO PRN (00:41)
[2021-08-03] MEDS: LACTATED RINGER'S 1,000 ML IV SCH ×3 (00:47→11:00)
[2021-08-03] MEDS: OXYCODONE/ACETAMINOPHEN 5-325 1 EACH TABLET PO PRN ×3 (02:02→11:13)
[2021-08-03 04:00] VITALS: BP 104/58
[2021-08-03] MEDS ORDERED: ONDANSETRON HCL 4 MG ORAL DISINTEGRATING TAB PO PRN (08:30)
[2021-08-03] MEDS: Vancomycin IV 1 GM in SODIUM CHLORIDE 0.9% 250ML 250 ML IV SCH (08:30)
[2021-08-03 08:35] VITALS: BP 101/55
[2021-08-03] MEDS ORDERED: MULTIVITAMINS/MINERALS TAB PO SCH (09:00)
[2021-08-03] MEDS ORDERED: FERROUS SULFATE 325 MG TAB PO SCH (09:00)
[2021-08-03] MEDS ORDERED: LORATADINE 10 MG TAB PO SCH (09:00)
[2021-08-03] MEDS ORDERED: OLMESARTAN 20 MG TAB PO SCH (09:00)
[2021-08-03] MEDS ORDERED: SERTRALINE HCL 100 MG TAB PO SCH (09:00)
[2021-08-03] MEDS: FAMOTIDINE 20 MG TAB PO SCH (09:00)
[2021-08-03] MEDS ORDERED: MELOXICAM 7.5 MG TAB PO SCH (09:00)
[2021-08-03 10:30] VITALS: BP 101/55
[2021-08-03 12:36] VITALS: BP 119/68
== END 2021-08-03 12:40 | disposition home or self-care (01) ==
LOC: OR 05:35 → PACU V 10:32 → MED/SURG 10:43
PROVIDERS: ADMIT Neurological Surgery; ATTEND Neurological Surgery
DX: M48.062 Spinal stenosis, lumbar region with neurogenic claudication (principal); M06.9 Rheumatoid arthritis, unspecified; I10 Essential (primary) hypertension; Z01.810 Encounter for preprocedural cardiovascular examination; Z01.812 Encounter for preprocedural laboratory examination; Z01.818 Encounter for other preprocedural examination; Z20.822 Contact with and (suspected) exposure to COVID-19; Z87.440 Personal history of urinary (tract) infections; E87.1 Hypo-osmolality and hyponatremia
CPT/HCPCS: 36415; 63047; 63048; 71046; 72020; 80048; 85025; 85610; 85730; 86850; 86900; 88304; 88311; 93005; G0378 ×2; J0131; J1100; J1170; J2001; J2250; J2405; J2704; J3010; J3370 ×2; J7050 ×2; J7121 ×2; U0002

== ENCOUNTER → 2024-01-14 | Day surgery (SDC) | payer MEDICARE, OTHER ==
[~2024-01-14] MED LIST changes: +ACETAMINOPHEN 1000 MG/100 ML 100 ML IV ONE; +BUPIVACAINE HCL 0.5% INJ 30 ML VIAL INJ ONE; +CELEBREX200 MG PO; +CIPRO250 MG PO; +CYMBALTA30 MG PO; +FENTANYL CITRATE/PF 100MCG/2 ML INJ ONE; +HYDROCODON-ACE1 EA12 PO; +IMODIUM A-1 MG/7.5 M PO; +LIDOCAINE 2%/ EPINEPHRINE 20ML MDV ONE; +LIDOCAINE HCL 2% LOCAL INJ 5 ML SDV VIAL INJ ONE; +ONDANSETRON HCL INJ 2MG/ML 2ML 2 MG/ML VIAL ONE; +PHENYLEPHRINE HCL 1% 10 MG/ML VIAL ONE; +PROPOFOL IV EMULSION 10 MG/ML 20 ML VIAL ONE; +PROTONIX20 MG PO
[2024-01-14 06:51] LABS: BASOPHILS # (AUTO) 0.1 (0.0-0.1); BASOPHILS % 0.8 % (0.0-1.0); EOSINOPHILS # (AUTO) 0.4 (0.0-0.4); EOSINOPHILS % 4.7 % (0.0-6.0); HEMATOCRIT 42.8 % (34.2-44.1); HEMOGLOBIN 14.7 g/dL (12.0-16.0); LYMPHOCYTES # (AUTO) 1.1 (1.0-3.2); LYMPHOCYTES % 12.6 % (18.0-39.1); MEAN CORPUSCULAR HEMOGLOBIN 30.3 pg (28-32); MEAN CORPUSCULAR HGB CONC 34.3 g/dL (31-35); MEAN CORPUSCULAR VOLUME 88.2 fL (81-99); MONOCYTES # (AUTO) 0.7 (0.2-0.8); MONOCYTES % 7.4 % (4.4-11.3); NEUTROPHILS # (AUTO) 6.6 (2.1-6.9); NEUTROPHILS % 74.1 % (38.7-80.0); PLATELET COUNT 231 x10e3/uL (140-360); RED BLOOD COUNT 4.85 x10e6/uL (3.6-5.1); RED CELL DISTRIBUTION WIDTH 13.6 % (11.7-14.4); WHITE BLOOD COUNT 8.95 x10e3/uL (4.8-10.8)
[2024-01-14 07:10] LABS: ANION GAP 16.4 mmol/L (8-16); CALCIUM 10.3 mg/dL (8.4-10.2); CREATININE, SERUM 1.15 mg/dL (0.57-1.11); POTASSIUM 4.4 mmol/L (3.5-5.1)
[2024-01-14 08:17] VITALS: TEMP 97.4
[2024-01-14] MEDS: GENTAMICIN 80MG/NS 100 ML 200 ML IV ONE (08:26)
[2024-01-14] MEDS: CLINDAMYCIN 600MG / 50ML 50 ML IV ONE (08:26)
[2024-01-14] MEDS: LACTATED RINGER'S 1,000 ML ONE (08:26)
[2024-01-14 08:45] VITALS: BP 119/80; PULSE 75; RESP 16; O2SAT 98
== END | disposition home or self-care (01) ==
LOC: OR 05:52
PROVIDERS: ATTEND Urology
DX: Z45.49 Encounter for adjustment and management of other implanted nervous system device (principal); N39.41 Urge incontinence; I10 Essential (primary) hypertension; K21.9 Gastro-esophageal reflux disease without esophagitis; N39.0 Urinary tract infection, site not specified; F32.A Depression, unspecified; Z88.1 Allergy status to other antibiotic agents; Z88.0 Allergy status to penicillin; Z88.8 Allergy status to other drugs, medicaments and biological substances; Z79.899 Other long term (current) drug therapy; Z85.828 Personal history of other malignant neoplasm of skin
CPT/HCPCS: 36415; 64585; 64595; 80048; 85025; 88300; 93005; J0131; J1580; J2001 ×2; J2371; J2405; J2704; J3010; J7121

== ENCOUNTER → 2025-04-26 | Outpatient (REF) | payer MEDICARE ==
[~2025-04-26] MED LIST changes: -ACETAMINOPHEN 1000 MG/100 ML 100 ML IV ONE; -BUPIVACAINE HCL 0.5% INJ 30 ML VIAL INJ ONE; -FENTANYL CITRATE/PF 100MCG/2 ML INJ ONE; +IOPAMIDOL 370 MG/ML 100 ML INFUS..BTL INJ ONE; -LIDOCAINE 2%/ EPINEPHRINE 20ML MDV ONE; -LIDOCAINE HCL 2% LOCAL INJ 5 ML SDV VIAL INJ ONE; -ONDANSETRON HCL INJ 2MG/ML 2ML 2 MG/ML VIAL ONE; -PHENYLEPHRINE HCL 1% 10 MG/ML VIAL ONE; -PROPOFOL IV EMULSION 10 MG/ML 20 ML VIAL ONE; +SODIUM CHLORIDE 0.9% 250ML 250 ML ONE; +SODIUM CHLORIDE 0.9% 500ML 500 ML ONE
[2025-04-26 09:54] LABS: EST GLOMERULAR FILTRATION RATE 49.0 ML/MIN (>=60)
== END ==
LOC: CT 08:39
PROVIDERS: ATTEND Urology
DX: R31.21 Asymptomatic microscopic hematuria (principal); N81.89 Other female genital prolapse
CPT/HCPCS: 36415; 74178; 82565; 84520; J7040; J7050; Q9967